=== PATIENT | female | born 1980 | race Caucasian/White ===

== ENCOUNTER 2019-12-02 07:09 | Emergency (ER) | payer BC ==
[~2019-12-02] VITALS: Ht 167.6 cm; Wt 74.8 kg
[2019-12-02] MEDS ORDERED: BUPR150ER PO (07:32)
== END 2019-12-02 07:50 | disposition home or self-care (01) ==
LOC: ER 07:09
DX: R04.0 Epistaxis (principal)
CPT/HCPCS: 99283